=== PATIENT | female | born 1965 | race Caucasian/White ===

== ENCOUNTER 2019-12-16 07:25 | Outpatient (CLI) | payer MEDICARE, MEDICAID, SELFPAY | END 2019-12-16 07:26 | disposition home or self-care (01) | PROVIDERS: PCP Family Medicine; Visit Provider Family Medicine | DX: F70 Mild intellectual disabilities (principal); H90.5 Unspecified sensorineural hearing loss | CPT/HCPCS: 92555; 92567; 92587 ==

== ENCOUNTER 2020-12-19 09:32 | Outpatient (CLI) | payer MEDICARE, MEDICAID, SELFPAY | END 2020-12-19 09:33 | disposition home or self-care (01) | LOC: ANHAUDIO 09:34 | PROVIDERS: PCP Family Medicine; Visit Provider Family Medicine | DX: Z01.10 Encounter for examination of ears and hearing without abnormal findings (principal); H90.5 Unspecified sensorineural hearing loss | CPT/HCPCS: 99199 ==

== ENCOUNTER 2021-05-16 10:49 | Outpatient (CLI) | payer MEDICARE, MEDICAID, SELFPAY | END 2021-05-16 10:50 | disposition home or self-care (01) | LOC: ANHAUDIO 10:50 | PROVIDERS: PCP Family Medicine; Visit Provider Family Medicine | DX: F70 Mild intellectual disabilities (principal); H90.5 Unspecified sensorineural hearing loss | CPT/HCPCS: 92555; 92567; 92587 ==